=== PATIENT | female | born 1935 | race Caucasian/White ===

== ENCOUNTER 2016-10-30 09:11 | Emergency (ER) | payer MEDICARE, MEDICAID ==
[~2016-10-30] VITALS: Ht 157.5 cm; Wt 54.9 kg
[2016-10-30] MEDS ORDERED: ASPIRIN 81MG TA81 MG PO (09:30)
[2016-10-30] MEDS ORDERED: FERROUS SULFAT325 M2 PO (09:32)
[2016-10-30] MEDS ORDERED: SYNTHROID 0.10.15 MG PO (09:32)
[2016-10-30] MEDS ORDERED: PRILOSEC20 M1 PO (09:33)
[2016-10-30] MEDS ORDERED: FLUOXETINE 10MG10 MG PO (09:34)
[2016-10-30] MEDS ORDERED: NORVASC 10MG. T10 MG PO (09:35)
[2016-10-30 09:36] LABS: LYMPH # 1.6 K/mm3 (0.7-4.5); LYMPH % 46.1 % (10-50.0)
--- NOTE | 2016-10-30 09:36 | Emergency Room Report ---
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 N Clinical Suspician of Infection? N Mental Status: 1 - Regular (Normal Baseline) Sepsis Risk:Low Sepsis Risk Have you (or family members/close friends) recently traveled outside the [place]? N If Yes, where/when: Have you had exposure to infectious disease within the past month? N TB? Other? Specify: Comment The patient is sent in by ambulance from [facility] for a reported low hemoglobin of 7.8. The patient is not able to provide significant history. She tells me that she is "nervous" and "wants to go home". She says both of these repeatedly. She does not answer questions in a meaningful way. ALLERGIES Coded Allergies: No Known Allergies (10/30/16) Home Medications Reported Medications ASPIRIN (Aspirin) 81 MG PO DAILY Levothyroxine Sodium (Synthroid 0.15MG) 0.15 MG PO DAILY Ferrous Sulfate (Ferrous Sulfate 325MG) 325 MG PO BID OMEPRAZOLE MAGNESIUM (Prilosec 20MG) 20 MG PO BID Fluoxetine Hcl (Fluoxetine 10MG) 30 MG PO DAILY AMLODIPINE BESYLATE (Norvasc) 5 MG PO DAILY Divalproex Sodium (Depakote Sprinkle) 500 MG PO BID Simvastatin (Zocor) 20 MG PO DAILY CLONIDINE HCL (CATAPRES 0.1MG TAB) 0.1 MG PO BID TRAZODONE HCL (Trazodone HCl) 25 MG PO QHS History Medical History General CAD? No Angina: No CO: No Hypertension? Yes Hyperlipidemia? Yes CHF? No DVT? No PE? No COPD? No Asthma? No Anemia? Yes GERD? Yes Gastric ulcers? No GI Bleed? No Hernia? No Thyroid Problems? No Hypothyroidism? No CVA? No Seizures? Yes Diabetes? Yes Insulin Dependent: No Insulin Pump: No Home FSBS? No Renal Insuffiency? No End Stage Renal Disease? Yes UTI? Yes Stones? No BPH? No GB Disease: No Nephritic Syndrome? No Asplenia? No Hepatitis? No Sickle Cell Disease? No Anxiety? No Depression? Yes Immunization Hx DT/Tetanus Unknown Surgical Hx Previous Surgery?Y CHOLECYS Cataract(s) Social History Smoking Hx Smoker: Never Smoker Tobacco: No Alcohol Alcohol: No Review of Systems All Other Systems Reviewed and Negative (unobtainable due to condition) Physical Exam Vital Signs Vital Signs Date Time Temp Pulse Resp B/P Pulse O2 O2 Flow FiO2 Ox Delivery Rate 10/30 1021 97.8 58 18 161/83 99 10/30 1015 98.1 58 18 161/83 98 / 0914 97.8 61 18 155/62 98 General Appearance no apparent distress, alert Eye Exam - bilateral eye normal exam, bilateral eye PERRL, bilateral eye EOMI Comment Small ecchymosis RIGHT upper eyelid. Ear, Nose, Throat hearing grossly normal, normal ENT inspection Neck normal inspection, supple Respiratory Status Yes: trachea midline, chest symmetrical. No: respiratory distress. Lung Sounds bilateral: normal breath sounds, lungs clear. Cardiovascular normal exam, regular rate/rhythm, no peripheral edema, no gallop, no JVD, no murmur, no rub, normal peripheral pulses Gastrointestinal normal bowel sounds, normal exam, non tender, soft, no organomegaly Extremities normal inspection Rectal tight, strictured anal sphincter Nurse present during exam? Yes Neurologic alert Mental status normal mood/affect Skin intact, appears mildly pale Medical Decision Making LABS/Meds/Orders Pt receiving controlled substance in ED? No Results/Orders Laboratory Tests 10/30/16 0925: Sodium 141, Potassium 5.0, Chloride 111 H, Carbon Dioxide 22, BUN 35 H, Creatinine 2.2 H, Estimated Creat Clear 18 L, Estimated GFR (MDRD) 22 L, Glucose 77, Calcium 9.0, Total Bilirubin 0.2, AST 17, ALT 10 L, Alkaline Phosphatase 50, Total Protein 5.7 L, Albumin 2.2 L, Globulin 3.5 H, Albumin/ Globulin Ratio 0.6 L, WBC 3.5 L, RBC 3.38 L, Hgb 10.0 L, Hct 30.8 L, MCV 91.2, RDW 13.5, Plt Count 95 L, MPV 7.0 L, Gran % 44.5, Gran # 1.5 L, Lymphocytes % 46.1, Monocytes % 5.3, Eosinophils % 3.3, Basophils % 0.8, Lymphocytes # 1.6, Monocytes # 0.2, Eosinophils # 0.1, Basophils # 0.0, PUBS MCHC 32.6, MCH 29.7, Stool Occult Blood NEGATIVE Current Medication Orders Sig/Fito Start time Last Medication Dose Route Stop Time Status Admin Sodium Chloride 10 ML PRN PRN 10/30 944 DCD IV 10/31 930 Orders Procedure Date/time Status IV SALINE LOCK 10/30 930 Active CBC WITH AUTO DIFF 10/30 930 Complete CHEM 12 PROFILE 10/30 930 Complete STOOL OCCULT BLOOD 10/30 929 Complete Progress - Reviewed prior lab results sent with the patient. In May her creatinine was 2.6, BUN 46. Hemoglobin was 11. Her laboratory work appears to be stable. She is not found to be severely anemic, which is the concern she was sent in for. I feel she can be discharged back to the detention. Departure Departure Disposition DC Home or Self Care(routine) Clinical Impression Primary Impression: Abnormal laboratory test result Condition STABLE Referrals [facility] (Family) ED Critical Care Critical Care No at 1150
[2016-10-30 09:37] LABS: STOOL OCCULT BLOOD NEGATIVE (NEG)
[2016-10-30] MEDS ORDERED: DEPAKOTE 125MG125 MG PO (09:37)
[2016-10-30] MEDS ORDERED: ZOCOR20 MG PO (09:38)
[2016-10-30] MEDS ORDERED: CATAPRES GENER0.1 MG PO (09:39)
[2016-10-30] MEDS ORDERED: TRAZODONE 50MG50 MG PO (09:41)
[2016-10-30 10:21] VITALS: BP 161/83
--- OUTSIDE RECORDS SUMMARY | 2016-10-30 10:21 | External Medical Summary Rpt ---
Author Author [employer] Organization [employer] Address Unknown Phone Unavailable Purpose Continuity of Care Document - through 2016
--- OUTSIDE RECORDS SUMMARY | 2016-10-30 10:22 | External Medical Summary Rpt ---
Demographics Preferred Language Niuean Marital Status Unknown Catholic Affiliation Unknown Race Unknown Ethnic Group Unknown Author Author , Organization [employer] Address Unknown Phone Unavailable Purpose Continuity of Care Document - through 2016 Immunization No patient found.
--- OUTSIDE RECORDS SUMMARY | 2016-10-30 10:22 | External Medical Summary Rpt ---
Author Author MARILIN Valdivia, [employer] Organization [employer] Address Unknown Phone Unavailable Results Comprehensive metabolic 2000 panel in Serum or Plasma Observa Value Referen Units Interpr Notes Date tion ce etation Range Albumin/G 1.1 - 1.8 No Low No Oct 30 lobulin informati informati 2016 9:25 [Mass on in on in AM ratio] in source source Serum or data data Plasma Albumin 3.4 - 5.0 gm/dL Low No Oct 30 [Mass/vol informati 2016 9:25 ume] in on in AM Serum or source Plasma data Alkaline 46 - 116 U/L Normal No Oct 30 phosphata informati 2016 9:25 se on in AM [Enzymati source c data activity/ volume] in Serum or Plasma Bilirubin 0.2 - 1.0 mg/dL Normal No Oct 30 .total informati 2016 9:25 [Mass/vol on in AM ume] in source Serum or data Plasma Urea 7 - 18 mg/dL High No Oct 30 nitrogen informati 2017 9:25 [Mass/vol on in AM ume] in source Serum or data Plasma Calcium 8.5 - mg/dL Normal No Oct 30 [Mass/vol 10.1 informati 2017 9:25 ume] in on in AM Serum or source Plasma data Chloride 98 - 107 mmoL/L High No Oct 30 [Moles/vo informati 2017 9:25 lume] in on in AM Serum or source Plasma data Carbon 21.0 - mmoL/L Normal No Oct 30 dioxide, 32.0 informati 2017 9:25 total on in AM [Moles/vo source lume] in data Serum or Plasma Creatinin 0.55 - mg/dL High No Oct 30 e 1.02 informati 2017 9:25 [Mass/vol on in AM ume] in source Serum or data Plasma Creatinin 50 - 200 ML/MIN Low No Oct 30 e renal informati 2017 9:25 clearance on in AM source predicted data by Cockcroft -Gault formula Estimated 59- ML/MIN Low REFERENCE Oct 30 RANGE: 2017 9:25 glomerula >60 AM r ML/MIN/1. filtratio 73 SQUARE n rate METERSIf (GF this patient is -A merican, then multiply theresult by 1.210. Globulin 1.3 - 3.2 gm/dL High No Oct 30 [Mass/vol informati 2016 9:25 ume] in on in AM Serum source data Glucose 74 - 106 mg/dL Normal No Oct 30 [Mass/vol informati 2016 9:25 ume] in on in AM Serum or source Plasma data Potassium 3.5 - 5.1 mmoL/L Normal No Oct 30 informati 2016 9:25 [Moles/vo on in AM lume] in source Serum or data Plasma Sodium 136 - 145 mmoL/L Normal No Oct 30 [Moles/vo informati 2016 9:25 lume] in on in AM Serum or source Plasma data Aspartate 15 - 37 U/L Normal No Oct 30 inform2016 9:25 aminotran on in AM sferase source [Enzymati data c activity/ volume] in Serum or Plasma Alanine 12 - 78 U/L Low No Oct 30 aminotran informati 2016 9:25 sferase on in AM [Enzymati source c data activity/ volume] in Serum or Plasma Protein 6.4 - 8.2 gm/dL Low No Oct 30 [Mass/vol informati 2016 9:25 ume] in on in AM Serum or source Plasma data CBC W Auto Differential panel in Blood Observa Value Referen Units Interpr Notes Date tion ce etation Range Basophils 0 - 0.2 K/MM3 Normal No Oct 30 inform2016 9:25 [#/volume on in AM ] in source Blood by data Automated count Basophils 0.1 - 2.0 % Normal No Oct 30 informati 2016 9:25 leukocyte on in AM s in source Blood by data Automated count Eosinophi 0.0 - 0.4 K/mm3 Normal No Oct 30 ls informati 2016 9:25 [#/volume on in AM ] in source Blood by data Automated count Eosinophi 0.1 - % Normal No Oct 30 ls/100 12.0 informati 2016 9:25 leukocyte on in AM s in source Blood by data Automated count Granulocy 1.8 - 7.8 K/mm3 Low No Oct 30 miguelito informati 2016 9:25 [#/volume on in AM ] in source Blood by data Automated count Granulocy 37.0 - % Normal No Oct 30 miguelito/100 80.0 informati 2016 9:25 leukocyte on in AM s in source Blood by data Automated count Hematocri 37.0 - % Low No Oct 30 t [Volume 47.0 informati 2016 9:25 on in AM Fraction] source of Blood data Hemoglobi 12.2 - g/dL Low No Oct 30 n 16.2 informati 2016 9:25 [Mass/vol on in AM ume] in source Blood data Lymphocyt 0.7 - 4.5 K/mm3 Normal No Oct 30 es informati 2016 9:25 [#/volume on in AM ] in source Unspecifi data ed specimen by Automated count Lymphocyt 10 - 50.0 % Normal No Oct 30 es informati 2016 9:25 [#/volume on in AM ] in source Unspecifi data ed specimen by Automated count Erythrocy 27 - 31.2 pg Normal No Oct 30 te mean informati 2016 9:25 corpuscul on in AM ar source hemoglobi data n [Entitic mass] Erythrocy 31.8 - g/dl Normal No Oct 30 te mean 35.4 informati 2016 9:25 corpuscul on in AM ar source hemoglobi data n concentra tion [Mass/vol ume] by Automated count Erythrocy 82.2 - fl Normal No Oct 30 te mean 97.8 informati 2016 9:25 corpuscul on in AM ar volume source [Entitic data volume] by Automated count Monocytes 0.1 - 1.0 K/mm3 Normal No Oct 30 informati 2016 9:25 [#/volume on in AM ] in source Blood by data Automated count Monocytes 1.7 - 9.3 % Normal No Oct 30 / informati 2017 9:25 leukocyte on in AM s in source Blood by data Automated count Platelet 7.4 - fl Low No Oct 30 mean 10.4 informati 2017 9:25 volume on in AM [Entitic source volume] data in Blood by Automated count Platelets 142 - 424 K/mm3 Low No Oct 30 informati 2017 9:25 [#/volume on in AM ] in source Blood data Erythrocy 4.2 - 5.4 M/mm3 Low No Oct 30 miguelito informati 2016 9:25 [#/volume on in AM ] in source Amniotic data fluid Erythrocy 11.5 - % Normal No Oct 30 te 17.5 informati 2016 9:25 distribut on in AM ion width source [Entitic data volume] by Automated count Leukocyte 4.8 - K/MM3 Low No Oct 30 s 10.8 informati 2016 9:25 [#/volume on in AM ] in source Blood data Hemoglobin.gastrointestinal [Presence] in Stool Observa Value Referen Units Interpr Notes Date tion ce etation Range Hemoglo NEGATIV NEG No No No Oct 30 bin.gas E informa informa informa 2017 trointe tion in tion in tion in 9:25 AM stinal source source source [Presen data data data ce] in Stool --1st specime n
--- OUTSIDE RECORDS SUMMARY | 2016-10-30 10:22 | External Medical Summary Rpt ---
Demographics Preferred Language Zambian Marital Status Unknown Worship Affiliation Unknown Race Unknown Ethnic Group Unknown Author Author , Organization [employer] Address Unknown Phone Unavailable Purpose Continuity of Care Document - through 2016 Immunization No patient found.
== END 2016-10-30 10:23 | disposition home or self-care (01) ==
LOC: ER 09:11
PROVIDERS: Emergency Medicine
DX: D64.9 Anemia, unspecified (principal); I10 Essential (primary) hypertension; K21.9 Gastro-esophageal reflux disease without esophagitis; E11.8 Type 2 diabetes mellitus with unspecified complications
CPT/HCPCS: G0328